=== PATIENT | female | born 1955 | race Caucasian/White ===

== ENCOUNTER → 2024-03-01 11:57 | Outpatient (CLI) | payer OTHER, SELFPAY ==
--- NOTE | 2024-03-01 12:00 | DI.NM.S_ITS ---
PROCEDURE: NM GARCIA PERF SPECT R&S PHARM Rest and pharmacological stress myocardial perfusion SPECT with gated imaging and ejection fraction RADIOPHARMACEUTICAL: 26.1 mCi Tc-99m tetrafosmin IV at rest and 25.4 mCi Tc-99m tetrafosmin IV at peak effect of pharmacological stress. Nrk-opt-vflvhmem was performed. INDICATIONS: SAL TECHNIQUE: Radiopharmaceutical was injected at peak stress test, and also at rest. SPECT images were obtained. SPECT myocardial perfusion images were displayed in short axis, horizontal long axis, and vertical long axis views. Gated images were reviewed using Augmentra software. COMPARISON: None. CARDIAC STRESS: A pharmacologic stress test was performed under the supervision of an attending staff, using an infusion of regadenoson 0.4 mg IV. Hemodynamic data: There is normal blood pressure and heart rate response to pharmacologic stress. Symptoms: The patient denied anginal chest pain. EKG: No diagnostic changes of ischemia; no ectopy. FINDINGS: Raw data: There is good myocardial uptake of radiotracer. No significant motion artifacts. Lols-aq-cmqts ratio is 0.30 (normal is less than 0.38 for tetrafosmin tracer). Left ventricle function: Gated images demonstrate normal left ventricular wall thickening. No segmental wall motion abnormalities. No transient ischemic dilation; TID is 1.07 (normal less than 1.3). Left ventricle resting end diastolic volume is 53 mL. Left ventricle stress ejection fraction is >75%; normal range is above 45%. Myocardial perfusion: There is normal distribution of activity in the right and left ventricular myocardium. No fixed or reversible perfusion defects. IMPRESSION: Low risk study. No evidence of pharmacologic induced ischemia or scar. Normal LV size with hyperdynamic function. Dictated by: Poonam Bower D.O. on 03/02/2024 at 16:12 Approved by: Poonam Bower D.O. on 03/02/2024 at 16:14
== END ==
PROVIDERS: Referring Provider Family Medicine; Visit Provider Family Medicine
DX: R06.09 Other forms of dyspnea (principal)
CPT/HCPCS: 78452; 93017; A9502; J2785

== ENCOUNTER 2024-04-20 12:12 | Day surgery (SDC) | payer OTHER, SELFPAY ==
--- NOTE | 2024-04-20 | PATH_ITS ---
[facility] Accession Number: [id number] No. of containers..03 Tissue . 01 Material submitted: . PART A: gastrointestinal site - GASTRIC BIOPSIES PART B: small bowel - SMALL BOWEL BIOPSY PART C: colon - RANDOM COLON BIOPSIES . 01 Diagnosis: Part A: GASTRIC BIOPSIES: Gastric mucosa with minimal chronic inflammation. No Helicobacter organisms identified. No intestinal metaplasia, dysplasia, or malignancy identified. . Part B: SMALL BOWEL BIOPSY: Small bowel mucosa with no diagnostic alterations. No active inflammation and no evidence of celiac disease. . Part C: RANDOM COLON BIOPSIES: Colonic mucosa with no diagnostic alterations. No active inflammation, granulomas, dysplasia, or malignancy identified. No evidence of colitis. [facility] 04/25/20241643 Local . 01 Electronically signed: . Faisal Rendon MD, Pathologist NPI- [id number] . 01 Gross description: . A. Received in formalin with two patient identifiers and gastric biopsies, are two calhoun soft tissue fragments, 0.2 to 0.4 cm in greatest dimension. Submitted in A1. . B. Received in formalin with two patient identifiers and small bowel, is a single calhoun soft tissue fragment, 0.5 cm in greatest dimension. Submitted in B1. . C. Received in formalin with two patient identifiers and random colon, are six calhoun soft tissue fragments, 0.1 to 0.4 cm in greatest dimension. Submitted in C1. ([id number]) /MRV 04/25/20241643 Local . 01 Microscopic: . Part A: GASTRIC BIOPSIES: An immunohistochemical stain was performed to evaluate for Helicobacter organisms and is negative. The control stains appropriately. * This test was developed and its performance characteristics determined by [facility]. It has not been cleared or approved by the U.[place]. Food and Drug Administration. The FDA has determined that such clearance or approval is not necessary. This test is used for clinical purposes. It should not be regarded as investigational or for research. . 01 Pathologist provided ICD-10: K29.30 . 01 CPT . 144010, 803197, 851692, [id number] Specimen Comment: A courtesy copy of this report has been sent to [phone] Performed at: [address] [facility] [address], [place], [place] [id number] MD Faisal Rendon MD Phone: [phone]
--- NOTE | 2024-04-20 12:45 | PM.HP.1 ---
History of Present Illness History of Present Illness Chief complaint: EGD/Colonoscopy Narrative: GE reflux recurrent loose stools throat clearing nausea unintentional weight loss PFSH Surgical History (Updated 04/20/24 @ 12:37 by Nona Barba RN) Hx of tonsillectomy Hx laparoscopic cholecystectomy Social History Smoking Status: Never smoker Meds Home Medications and Allergies Home Medications Medication Instructions Recorded Confirmed Type omeprazole magnesium 20 mg 20 mg PO DAILY 04/13/24 04/13/24 History tablet,delayed release (Prilosec OTC) Allergies Allergy/AdvReac Type Severity Reaction Status Date / Time Sulfa (Sulfonamide Allergy Intermediate Hives Verified 04/13/24 16:01 Antibiotics) Exam Narrative Exam Narrative: Oropharynx free of lesions Chest clear to auscultation percussion Cardiac exam reveals no S3 or murmur Assessment & Plan Assessment & Plan narrative: Upper tract symptoms to include GE reflux, Foist change, chronic throat clearing, nausea, hiatal hernia. Colonoscopy also needs to be performed for screening purposes. Risks, benefits, alternatives have been explained. Time-Based Coding :: [TOTAL MINUTES] spent with patient and on the chart (including review of chart, obtaining history, exam, reviewing outside data, placing orders, documenting exam and treatment plan, and counseling patient) on [DATE].
--- NOTE | 2024-04-20 12:47 | PM.OP.EC ---
Operative Date/Time/Diagnoses Date of procedure: 04/20/24 Pre-op diagnosis: See indication and findings Procedure & Clinicians Study performed: EGD and colonoscopy Indications: Upper tract symptoms rule out GE reflux rule out peptic disease. In addition with frequent loose stools rule out microscopic colitis and also need for screening Procedure Notes Procedure in detail: After informed consent was obtained the patient was placed in left lateral decubitus position. The video upper scope was placed into the oropharynx and with the patient's help swallowed into the esophagus. The esophagus stomach and duodenum were carefully examined. On withdrawal, retroflexed view the GE junction was performed. The scope was removed. The patient tolerated procedure well. At this point the patient was turned and the colonoscope substituted. This was placed the rectum and slowly advanced cecum. Preparation was good. On slow withdrawal mucosa was carefully examined. The scope was removed. The patient tolerated procedure well. Blood loss none Complications none Sedation mac Findings EGD 1. Small sliding hiatal hernia with normal squamocolumnar junction 2. Striped gastric erythema biopsies taken to rule out Helicobacter 3. Normal duodenal bulb and sweep biopsies taken to rule out celiac Colonoscopy 1. Normal colonoscopy to cecum. Random biopsies taken to rule out microscopic colitis Will be in touch regarding her biopsies. Follow-up colonoscopy in 10 years
[2024-04-20 13:02] VITALS: BP 136/94; PULSE 106; RESP 18; TEMP 37; O2SAT 96
[2024-04-20] MEDS: LACTATED RINGERS 1,000 ML 42 ML IV (13:13)
[2024-04-20 13:27] LABS: COVID19 -Nasal RAPID Negative (Negative)
[2024-04-20 14:16] VITALS: BP 112/76; PULSE 98; RESP 20; TEMP 36.4; O2SAT 96
[2024-04-20 14:20] VITALS: BP 124/91; PULSE 95; RESP 21; O2SAT 98
[2024-04-20 14:22] VITALS: BP 119/81; PULSE 94; RESP 17; TEMP 35.9; O2SAT 97
== END 2024-04-20 14:43 | disposition home or self-care (01) ==
PROVIDERS: PCP Nurse Practitioner; Referring Provider Internal Medicine Gastroenterology; Visit Provider Internal Medicine Gastroenterology
PROC: 0DJ08ZZ Inspection of Upper Intestinal Tract, Via Natural or Artificial Opening Endoscopic (ICD-10-PCS; CPT 43235; principal; 2024-04-20 13:30)
PROC: 0DJD8ZZ Inspection of Lower Intestinal Tract, Via Natural or Artificial Opening Endoscopic (ICD-10-PCS; CPT 45378; 2024-04-20 13:30)
DX: R19.7 Diarrhea, unspecified (principal); K21.9 Gastro-esophageal reflux disease without esophagitis; K44.9 Diaphragmatic hernia without obstruction or gangrene; K29.50 Unspecified chronic gastritis without bleeding
CPT/HCPCS: 45380; 43239; 87635; J2704